=== PATIENT | male | born 1995 | race African-American/Black ===

== ENCOUNTER 2017-03-24 00:03 | Emergency (ER) | payer MEDICAID ==
[2017-03-24] MEDS ORDERED: FENTANYL CITRATE INJ/PF 100 MCG/2 ML AMPUL IV ONE (01:20)
[2017-03-24] MEDS ORDERED: ONDANSETRON HCL INJ/PF 4 MG/2 ML SDV IV ONE ×2 (01:20→01:57)
[2017-03-24] MEDS ORDERED: PROPOFOL INJ 200 MG/20 ML VIAL IV ONE ×2 (01:58→04:29)
--- NOTE | 2017-03-24 02:03 | RADIOLOGY REPORT (SQ) ---
EXAM DESCRIPTION: SHOULDER LEFT 2 OR MORE VIEWS CLINICAL HISTORY: 21 years, Male, injury COMPARISON: None. NUMBER OF VIEWS: 2 TECHNIQUE: Routine left shoulder radiographic protocols. LIMITATIONS: None. FINDINGS: Anterior left shoulder dislocation without underlying fracture. Acromioclavicular joint, left clavicle and left scapula appear intact. Partially visualized left ribs are intact. Partially visualized mid and upper left lung are clear. No left apical pneumothorax. IMPRESSION: Anterior left shoulder dislocation. 2011 [employer]- All Rights Reserved
[2017-03-24] MEDS ORDERED: PROPOFOL 100 ML IV ONE (02:04)
--- NOTE | 2017-03-24 03:05 | RADIOLOGY REPORT (SQ) ---
EXAM DESCRIPTION: SHOULDER LEFT 1 VIEW CLINICAL HISTORY: 21 years, Male, s/p manipulation COMPARISON: None. NUMBER OF VIEWS: 1 TECHNIQUE: Routine shoulder radiographic technique. LIMITATIONS: None. FINDINGS: Left humeral head is been successfully relocated in anatomic position. Suspect subtle minimally displaced left scapular infraspinatus fracture. The left clavicle and left acromioclavicular joint are intact. Partially visualized left lung is clear. IMPRESSION: 1. Successful relocation of the left glenohumeral joint. 2. Nondisplaced subtle fracture in the infraspinatus left scapula. 2011 [employer]- All Rights Reserved
--- NOTE | 2017-03-24 03:22 | ER Document Report ---
ED General - General Chief Complaint: Shoulder Injury Stated Complaint: SHOULDER PAIN Time Seen by Provider: 03/24/17 01:51 Mode of Arrival: Ambulatory Information source: Patient Notes: This is a 21-year-old man that presents to the emergency room with left shoulder pain and deformity. He was wrestling with friend shortly prior to arrival. TRAVEL OUTSIDE OF THE [place] IN LAST 30 DAYS: No - HPI Onset: Just prior to arrival Onset/Duration: Sudden Quality of pain: Sharp Severity: Severe Pain Level: 5 Associated symptoms: None Exacerbated by: Denies Relieved by: Denies Similar symptoms previously: No Recently seen / treated by doctor: No - Related Data Allergies/Adverse Reactions: No Known Allergies Allergy (Verified 03/24/17 01:04) Past Medical History - General Information source: Patient - Social History Smoking Status: Never Smoker Cigarette use (# per day): No Chew tobacco use (# tins/day): No Frequency of alcohol use: None Drug Abuse: None Lives with: Family Family History: None Patient has suicidal ideation: No Patient has homicidal ideation: No - Medical History Medical History: Negative Renal/ Medical History: Denies: Hx Peritoneal Dialysis Surgical Hx: Negative - Immunizations Immunizations up to date: Yes Review of Systems - Review of Systems Constitutional: denies: Chills, Fever EENT: No symptoms reported Cardiovascular: No symptoms reported Respiratory: No symptoms reported Gastrointestinal: No symptoms reported Genitourinary: No symptoms reported Male Genitourinary: No symptoms reported Musculoskeletal: See HPI Skin: No symptoms reported Hematologic/Lymphatic: No symptoms reported Neurological/Psychological: No symptoms reported Physical Exam - Vital signs Vitals: Temp Pulse Resp BP Pulse Ox 98.3 F 72 20 128/73 H 97 03/24/17 01:03 03/24/17 01:03 03/24/17 01:03 03/24/17 01:03 03/24/17 01:03 Notes: Physical exam: GENERAL: HEAD: Atraumatic, normocephalic. EYES: Pupils equal round and reactive to light, extraocular movements intact, sclera anicteric, conjunctiva are normal. ENT: TMs normal, nares patent, oropharynx clear without exudates. Moist mucous membranes. NECK: Normal range of motion, supple without obvious mass or JVD. LUNGS: Breath sounds clear to auscultation bilaterally and equal. No wheezes rales or rhonchi. HEART: Regular rate and rhythm without murmurs, rubs or gallops. ABDOMEN: Soft, normoactive bowel sounds. No tenderness to palpation. No guarding, no rebound. No masses appreciated. EXTREMITIES: Left shoulder deformity. He does have distal radial pulse. He has got intact extension of the wrist. He does have sensation along the deltoid. He does have good cap refill. NEUROLOGICAL: Cranial nerves II through XII grossly intact. Normal speech, moving all extremities. PSYCH: Normal mood, normal affect. SKIN: Warm, Dry, normal turgor, no rashes or lesions noted. Course - Vital Signs Vital signs: Temp Pulse Resp BP Pulse Ox 98.3 F 91 H 16 143/83 H 100 03/24/17 01:03 03/24/17 02:18 03/24/17 03:36 03/24/17 03:36 03/24/17 03:36 - Diagnostic Test Radiology reviewed: Image reviewed, Reports reviewed - Post x-ray after manipulation shows reduction of the joint. Procedures - Joint Reduction/Fracture Care Left Shoulder Time completed: 03:21 Consent obtained: Yes Conscious sedation: Yes Pre-procedure NV exam: Yes Manipulation comment: Traction, tract countertraction, scapular manipulation Post-procedure NV exam: Yes Post-reduction x-ray: Joint reduced Reduction attempts: 1 Complications: No Discharge - Discharge Clinical Impression: Left shoulder dislocation Condition: Stable Disposition: HOME, SELF-CARE Instructions: Oral Narcotic Medication ([facility]), Shoulder Dislocation ([facility]), Sling as Treatment ([facility]) Additional Instructions: Recommendations: Take ibuprofen every 6 hours for pain for the next few days. Take Percocet for pain unrelieved by the Motrin. Keep the arm in sling can apply ice to the left shoulder. Keep in sling for the next 2 weeks. You are at an increased chance of getting another dislocation. I recommend you follow-up with an orthopedic surgeon. You can begin gradual range of motion exercises after 2 weeks. Prescriptions: Oxycodone HCl/Acetaminophen [Percocet 5-325 mg Tablet] 1 - 2 tab PO ASDIR PRN # 15 tablet PRN Reason: Referrals: MADELIN WATERMAN MD [ACTIVE STAFF] - Follow up as needed (Call for appointment in the next 2 weeks)
[2017-03-24 04:38] VITALS: BP 131/74
== END 2017-03-24 04:51 | disposition home or self-care (01) ==
LOC: ER 00:03
PROC: 0RSKXZZ Reposition Left Shoulder Joint, External Approach (ICD-10-PCS; principal; 2017-03-24)
DX: S43.005A Unspecified dislocation of left shoulder joint, initial encounter (principal); X58.XXXA Exposure to other specified factors, initial encounter
CPT/HCPCS: 73020; 73030; 23650; J3010; J2405; J2704